=== PATIENT | male | born 1965 | race Hispanic/Latino ===

== ENCOUNTER 2023-09-30 08:17 | Outpatient (CLI) | payer OTHER ==
[2023-09-30] MEDS ORDERED: Iopamidol 300 61% 100 ML VIAL FS ONE (09:00)
[2023-09-30] MEDS ORDERED: Lidocaine 1% PF 5 ML VIAL ONE (09:00)
[2023-09-30] MEDS ORDERED: EPINEPHrine 1 MG/ML AMP ONE (09:00)
[2023-09-30] MEDS ORDERED: Gadobenate Dimeglumine 529 MG/1 ML (5 ML SDV) ONE (09:00)
== END 2023-09-30 08:18 | disposition home or self-care (01) ==
LOC: CSHRAD 08:17
PROVIDERS: ATTEND Family Medicine
DX: S46.291D Other injury of muscle, fascia and tendon of other parts of biceps, right arm, subsequent encounter (principal); S46.011D Strain of muscle(s) and tendon(s) of the rotator cuff of right shoulder, subsequent encounter; Z98.890 Other specified postprocedural states; S46.011A Strain of muscle(s) and tendon(s) of the rotator cuff of right shoulder, initial encounter; S43.431A Superior glenoid labrum lesion of right shoulder, initial encounter; M19.011 Primary osteoarthritis, right shoulder
CPT/HCPCS: 23350; A9577; J0171; J7050; Q9967

== ENCOUNTER 2024-11-30 20:52 | Emergency (ER) | payer OTHER ==
[2024-11-30] MEDS ORDERED: Boostrix 0.5 ML (Tdap) VIAL (>/=7 yrs of age) ONE (22:41)
[2024-11-30] MEDS ORDERED: Doxycycline 100 MG CAP PO SCH (23:45)
== END 2024-11-30 23:58 | disposition home or self-care (01) ==
LOC: CSHERS 20:52
DX: S91.331A Puncture wound without foreign body, right foot, initial encounter (principal); I10 Essential (primary) hypertension; E11.9 Type 2 diabetes mellitus without complications; F17.200 Nicotine dependence, unspecified, uncomplicated; W45.0XXA Nail entering through skin, initial encounter
CPT/HCPCS: 90471; 90715